=== PATIENT | female | born 1990 | race Caucasian/White ===

== ENCOUNTER → 2016-08-07 | Outpatient (CLI) | payer OTHER ==
[~2016-08-07] MED LIST: PRENTAB26 PO; PRT/20 PO
[2016-08-07 16:32] LABS: HEMATOCRIT 32.4 % (37-47)
== END | disposition home or self-care (01) ==
LOC: C.LAB1850 15:34
PROVIDERS: ATTEND Obstetrics & Gynecology
DX: O24.410 Gestational diabetes mellitus in pregnancy, diet controlled (principal)

== ENCOUNTER → 2016-08-07 | Outpatient (CLI) | payer OTHER ==
[2016-08-07 18:53] LABS: URINE APPEARANCE CLEAR (CLEAR); URINE BILIRUBIN NEG (NEG); URINE COLOR YELLOW; URINE NITRITE NEG (NEG); URINE PH 6.5 (4.5-7.5); UROBILINOGEN NEG (NEG)
[2016-08-07 18:58] LABS: MANUAL MICROSCOPIC REQUIRED? NO; REVIEW REQ? NO
== END | disposition home or self-care (01) ==
LOC: C.LABSPEC 17:51
PROVIDERS: ATTEND Obstetrics & Gynecology
DX: O24.410 Gestational diabetes mellitus in pregnancy, diet controlled (principal)

== ENCOUNTER 2016-08-22 17:46 | Outpatient (CLI) | payer OTHER ==
[~2016-08-22] VITALS: Ht 170.2 cm; Wt 80.7 kg
[2016-08-22 18:22] VITALS: Ht 170.2 cm; Wt 80.7 kg
[2016-08-22] MEDS ORDERED: PRENTAB26 PO (18:28)
[2016-08-22] MEDS ORDERED: PRT/20 PO (18:28)
== END 2016-08-22 18:50 | disposition home or self-care (01) ==
LOC: C.LD 17:46 → C.OPB 17:46
PROVIDERS: ATTEND Obstetrics & Gynecology
DX: O62.9 Abnormality of forces of labor, unspecified (principal); Z3A.31 31 weeks gestation of pregnancy

== ENCOUNTER 2016-09-02 13:33 | Emergency (ER) | payer OTHER ==
[~2016-09-02] VITALS: Ht 170.2 cm; Wt 80.0 kg
[2016-09-02 13:38] VITALS: TEMP 36.8; Ht 170.2 cm; Wt 80.0 kg
[2016-09-02 14:01] VITALS: O2SAT 96
[2016-09-02 14:21] LABS: POINT OF CARE PRO-BNP < 15 pg/ml (0-450)
--- NOTE | 2016-09-02 14:37 | EMERGENCY ROOM VISIT NOTE ---
History Report prepared by Zackibsavi: Brianna Achraya Under the Supervision of: Dr. Mack English D.O. First contact with patient: 13:41 Chief Complaint: SHORTNESS OF BREATH Stated Complaint: SOB,TINGLING IN HANDS AND FEET,HEADACHE Nursing Triage Summary: PT HERE WITH FEELING OF SOB SINCE LAST PM INTERMITTENTLY. PT STATES FEELS NEED TO TAKE A DEEP BREATH. PT STATES HANDS FEEL TERESA. History of Present Illness The patient is a 33 week 25 year old female who presents to the Emergency Room with complaints of intermittent shortness of breath over the past 2 months. The patient states that her shortness of breath used to go away with changing positions but now does not go away when she changes positions. It occurs when she is both exerting herself and at rest. She notes that it seems to have worsened since yesterday. She also complains of nausea and tingling in her fingers and toes. Last night, she had a headache. Currently, she feels slightly short of breath. She does not have any leg swelling at present. She has a history of anxiety years ago. Source of History: patient Onset: 2 months ago Position: other (global) Timing: intermittent, worsening Associated Symptoms: + headache, + nausea Note: Other symptoms: fingers and toes are tingling Review of Systems See HPI for pertinent positives & negatives. A total of 10 systems reviewed and were otherwise negative. Past Medical & Surgical Medical Problems: (1) Irregular contractions Family History No pertinent family history stated. Social History Smoking Status: Never Smoker Marital Status: Housing Status: lives with significant other Current/Historical Medications Scheduled Multivit/Min/Iron/Fol Ac/Pren ( Vitamin), 1 TAB PO 2XWK Scheduled PRN Pantoprazole (Protonix), 20 MG PO DAILY PRN for Heartburn Allergies Coded Allergies: No Known Allergies (Unverified , 09/02/16) Verified with the patient Physical Exam Vital Signs Date Time Temp Pulse Resp B/P Pulse Ox O2 Delivery O2 Flow Rate FiO2 09/02/16 14:38 88 16 100/59 96 Room Air 09/02/16 14:01 96 Room Air 09/02/16 13:47 97 Room Air 09/02/16 13:38 36.8 98 16 110/66 97 Room Air Physical Exam CONSTITUTIONAL/VITAL SIGNS: Reviewed / noted above. GENERAL: Non-toxic in appearance. INTEGUMENTARY: Warm, dry, and Gratis. HEAD: Normocephalic. EYES: without scleral icterus or trauma. ENT/OROPHARYNX: clear and moist. LYMPHADENOPATHY/NECK: Is supple without lymphadenopathy or meningismus. RESPIRATORY: Lungs clear and equal. CARDIOVASCULAR: Regular rate and rhythm. GI/ABDOMEN: Gravid abdomen, nontender. No organomegaly or pulsatile mass. No rebound or guarding. Normal bowel sounds. EXTREMITIES: Warm and well perfused. BACK: No CVA tenderness. NEUROLOGICAL: Intact without focal deficits. PSYCHIATRIC: normal affect. MUSCULOSKELETAL: Normally developed with good muscle tone. Medical Decision & Procedures Laboratory Results Test 09/02/16 14:00 Bedside Troponin I 0.000 ng/ml (0-0.045) [id number]-Type Natriuretic Peptide < 15 pg/ml (0-450) Laboratory results as stated above per my review. ECG Indication: SOB/dyspnea Rate (beats per minute): 99 Rhythm: normal sinus Findings: no ectopy, other (no acute injury) ED Course 1343: The patient was evaluated in room C8. A complete history and physical examination was performed. 1430: On reevaluation, the patient is resting comfortably. I discussed the results and findings with the patient. She verbalized agreement of the treatment plan. The patient was discharged home. Medical Decision the differential was considered includes acute myocardial infarction, acute coronary syndrome, myocarditis, pericarditis, pericardial effusions /tamponad, esophageal perforation, pulmonary embolism, pneumonia, pneumothorax, cardiomyopathy, congestive heart, anemia , COPD/asthma exacerbation. This is a 25-year-old female who presents to the ED with a chief complaint of some shortness of breath as well as tingling in her hands and feet. Her symptoms occurred last night while she was sleeping. She woke with the symptoms. They subsequently resolved. She is now feeling better. She has some mild shortness of breath related to her 33 week gravid abdomen but she denies having any chest pains. She was concerned about her symptoms that she had last night. Again these have resolved. Her vital signs are stable. Her physical exam was normal. She is comfortable. She is not having any respiratory distress. Her lungs are clear. Abdomen is gravid. She denies any vaginal discharge or bleeding. She denies any back pains. She denies any swelling of her lower extremities. Exam of her lower extremities did not reveal any edema or tenderness to the calf muscles. A twelve-lead EKG reveals a sinus rhythm. Troponin was negative. BNP is normal. Hemoglobin was 11.1. The patient was reassessed per she is resting comfortably. She has normal vital signs. Saturations are normal. She is felt to be stable for discharge. The patient is not felt to have a DVT based on history and exam. I do not suspect PE based on history as well as the fact that her symptoms were present and then resolved on their own. She is in no distress and has no pains or shortness of breath at this time. Impression Primary Impression: Dyspnea Additional Impression: Third trimester Scribe Attestation The scribe's documentation has been prepared under my direction and personally reviewed by me in its entirety. I confirm that the note above accurately reflects all work, treatment, procedures, and medical decision making performed by me. Departure Information Dispostion Home / Self-Care Referrals No Doctor, Assigned (PCP) Patient Instructions My [facility] Additional Instructions Follow-up with your doctor for further care and evaluation in 1-2 days if symptoms persist. Return to the emergency department for worsening or new symptoms or any concerns. You have been examined and treated today on an emergency basis only. This is not a substitute for, or an effort to provide, complete comprehensive medical care. It is impossible to recognize and treat all injuries or illnesses in a single emergency department visit. It is therefore important that you follow up closely with your doctor. Call as soon as possible for an appointment. Problem Qualifiers
[2016-09-02 14:38] VITALS: BP 100/59; PULSE 88; O2SAT 96
[2016-09-10 09:29] LABS: ISTAT CREATININE 0.7 mg/dl (0.6-1.3); ISTAT HEMOGLOBIN 11.2 g/dl (12.0-16.0); ISTAT IONIZED CALCIUM 1.17 mmol/l (1.12-1.32)
== END 2016-09-02 14:43 | disposition home or self-care (01) ==
LOC: C.EDB 13:34 → C.EDC 14:43
DX: O26.893 Other specified pregnancy related conditions, third trimester (principal); R06.00 Dyspnea, unspecified; Z3A.33 33 weeks gestation of pregnancy

== ENCOUNTER → 2016-09-21 | Outpatient (CLI) | payer OTHER | END | disposition home or self-care (01) | LOC: C.LABSPEC 17:41 | PROVIDERS: ATTEND Obstetrics & Gynecology | DX: O24.410 Gestational diabetes mellitus in pregnancy, diet controlled (principal); Z3A.00 Weeks of gestation of pregnancy not specified ==

== ENCOUNTER 2016-10-06 17:27 | Outpatient (CLI) | payer OTHER | END 2016-10-06 19:25 | disposition home or self-care (01) | LOC: C.LD 17:27 → C.OPB 17:27 | PROVIDERS: ATTEND Obstetrics & Gynecology | DX: O62.9 Abnormality of forces of labor, unspecified (principal); Z3A.37 37 weeks gestation of pregnancy ==

== ENCOUNTER 2016-10-13 18:42 | Outpatient (CLI) | payer OTHER ==
[~2016-10-13] VITALS: Ht 170.2 cm; Wt 83.0 kg
[2016-10-13] MEDS ORDERED: OXYCODONE/ACETAMINOPHEN 5-325 TAB PO ONE (19:00)
[2016-10-13] MEDS ORDERED: OXYCODONE/ACETAMINOPHEN 5-325 TAB ONE (19:03)
[2016-10-13 19:50] VITALS: Ht 170.2 cm; Wt 83.0 kg
== END 2016-10-14 00:20 | disposition home or self-care (01) ==
LOC: C.OPB 18:42 → C.LD 18:43 → C.OPB 10-14 00:20
PROVIDERS: ATTEND Obstetrics & Gynecology
DX: O62.9 Abnormality of forces of labor, unspecified (principal); O99.89 Other specified diseases and conditions complicating pregnancy, childbirth and the puerperium; M54.9 Dorsalgia, unspecified; Z3A.39 39 weeks gestation of pregnancy

== ENCOUNTER 2016-10-15 12:29 | Outpatient (CLI) | payer OTHER ==
[~2016-10-15] VITALS: Ht 170.2 cm; Wt 82.8 kg
[2016-10-15 13:26] VITALS: Ht 170.2 cm; Wt 82.8 kg
== END 2016-10-15 15:45 | disposition home or self-care (01) ==
LOC: C.OPB 12:29 → C.LD 12:30 → C.OPB 15:45
PROVIDERS: ATTEND Obstetrics & Gynecology
DX: O62.9 Abnormality of forces of labor, unspecified (principal); Z3A.39 39 weeks gestation of pregnancy; Z22.330 Carrier of Group B streptococcus

== ENCOUNTER 2016-10-15 22:38 | Outpatient (CLI) | payer OTHER ==
[~2016-10-15] VITALS: Ht 170.2 cm; Wt 81.8 kg
[2016-10-15 23:40] VITALS: Ht 170.2 cm; Wt 81.8 kg
--- NOTE | 2016-10-23 10:38 | EDITING REQUIRED CODING QUERY ---
DIAGNOSIS NEEDED To promote full compliance with coding requirements relating to patient care, physician participation is requested in all cases of burner operator uncertainty. Please assist us with the question(s) below: Coding Question: The patient received care in labor and delivery on 10/15/16 as noted within the record. Please document the diagnosis that is being addressed by the medication/treatment. Provider Response: DIAGNOSIS: Term , false labor Thank you for your assistance, Christine Rose - Associate Vice President
== END 2016-10-16 01:45 | disposition home or self-care (01) ==
LOC: C.OPB 22:38 → C.LD 22:38 → C.OPB 10-16 01:45
PROVIDERS: ATTEND Obstetrics & Gynecology
DX: Z34.83 Encounter for supervision of other normal pregnancy, third trimester (principal); Z3A.39 39 weeks gestation of pregnancy

== ENCOUNTER 2016-10-16 13:03 | Outpatient (CLI) | payer OTHER ==
[~2016-10-16] VITALS: Ht 170.2 cm; Wt 82.0 kg
[2016-10-16 13:22] VITALS: Ht 170.2 cm; Wt 82.0 kg
[2016-10-16] MEDS ORDERED: LACTATED RINGER'S 1000ML 1,000 ML IV SCH (13:38)
[2016-10-16] MEDS ORDERED: LACTATED RINGER'S 1000ML 500 ML IV ONE (13:38)
[2016-10-16] MEDS ORDERED: ONDANSETRON INJ 2 MG/ML 2 ML VIAL IV PRN (13:45)
[2016-10-16] MEDS ORDERED: DiphenhydrAMINE INJ 25 MG in SYRINGE 0 ML IV SCH (13:45)
[2016-10-16] MEDS ORDERED: MEPERIDINE HCL 50 MG/ML CARP IV PRN (13:45)
[2016-10-16] MEDS ORDERED: DiphenhydrAMINE HCL 50 MG/ML VIAL IV ONE (13:45)
== END 2016-10-16 16:20 | disposition home or self-care (01) ==
LOC: C.LD 13:03 → C.OPB 13:03
PROVIDERS: ATTEND Obstetrics & Gynecology
DX: O62.9 Abnormality of forces of labor, unspecified (principal); Z3A.39 39 weeks gestation of pregnancy

== ENCOUNTER 2016-10-18 04:14 | Inpatient (IN) | payer OTHER ==
[~2016-10-18] VITALS: Ht 170.2 cm; Wt 81.8 kg
[2016-10-18] MEDS ORDERED: LACTATED RINGER'S 1000ML 1,000 ML IV PRN (07:00)
[2016-10-18 07:12] VITALS: Ht 170.2 cm; Wt 81.8 kg
[2016-10-18] MEDS ORDERED: EpHEDrine SULFATE INJ 50 MG/ML AMP ONE (07:16)
[2016-10-18] MEDS ORDERED: BUPIVACAINE 0.25% 30 ML VIAL ONE (07:16)
[2016-10-18] MEDS ORDERED: FENTANYL 2MCG/ML ROPIV 1.25MG/ML 100ML BAG EPI ONE (07:16)
[2016-10-18] MEDS ORDERED: FENTANYL CITRATE INJ 50 MCG/1 ML 2 ML VIAL ONE (07:17)
[2016-10-18 07:30] LABS: HEMATOCRIT 32.1 % (37-47); MEAN CELL VOLUME 89.4 fL (80-100); MEAN PLATELET VOLUME 10.9 fL (7.4-10.4); PLATELET COUNT 169 K/uL (130-400); RED BLOOD COUNT 3.59 M/uL (4.2-5.4); WHITE BLOOD COUNT 10.78 K/uL (4.8-10.8)
[2016-10-18] MEDS ORDERED: PENICILLIN G POTASSIUM IV 6 MU in DEXTROSE 5% 250ML 250 ML IV SCH (07:30)
[2016-10-18] MEDS: LACTATED RINGER'S 1000ML 1,000 ML IV SCH ×2 (07:30→11:02)
[2016-10-18 07:38] LABS: MEAN CORPUSCULAR HGB CONC 32.4 g/dl (32-36)
[2016-10-18] MEDS ORDERED: NALOXONE HCL INJ 1 MG in SODIUM CHLORIDE 0.9% 1000ML 1,000 ML IV PRN ×4 (08:01)
[2016-10-18] MEDS ORDERED: LACTATED RINGER'S 1000ML 500 ML IV PRN ×2 (08:01→12:10)
[2016-10-18] MEDS ORDERED: NALOXONE HCL INJ 0.4 MG/1 ML VIAL/CARP IV PRN (08:15)
[2016-10-18] MEDS ORDERED: DiphenhydrAMINE HCL 50 MG/ML VIAL IV PRN (08:15)
[2016-10-18] MEDS ORDERED: METOCLOPRAMIDE HCL INJ 20 MG in SODIUM CHLORIDE 0.9% 50ML 50 ML IV PRN (08:15)
[2016-10-18] MEDS ORDERED: NALBUPHINE HCL INJ 10 MG/ML AMP IV PRN (08:15)
[2016-10-18] MEDS ORDERED: PROMETHAZINE HCL INJ 25 MG in SODIUM CHLORIDE 0.9% 50ML 50 ML IV PRN (08:15)
[2016-10-18] MEDS ORDERED: FENTANYL 2MCG/ML ROPIV 1.25MG/ML 100ML BAG EPI PRN (08:15)
[2016-10-18] MEDS ORDERED: EpHEDrine SULFATE INJ 50 MG/ML AMP IV PRN (08:15)
[2016-10-18] MEDS ORDERED: ONDANSETRON INJ 2 MG/ML 2 ML VIAL IV PRN (08:15)
[2016-10-18] MEDS: PENICILLIN G POTASSIUM IV 3 MU in DEXTROSE 5% 100ML 100 ML IV PRN ×2 (11:12→15:14)
[2016-10-18] MEDS ORDERED: OXYTOCIN 30 UNITS/500ML NSS IV PRN ×2 (12:15→18:15)
[2016-10-18] MEDS ORDERED: METHYLERGONOVINE MALEATE 0.2 MG/ML AMP ONE (17:54)
[2016-10-18] MEDS ORDERED: ACETAMINOPHEN/CODEINE 300/30MG TAB PO PRN ×2 (18:15)
[2016-10-18] MEDS ORDERED: OXYCODONE/ACETAMINOPHEN 5-325 TAB PO PRN (18:15)
[2016-10-18] MEDS ORDERED: LANOLIN OINT EXT PRN ×2 (18:15)
[2016-10-18] MEDS ORDERED: BENZOCAINE 20% AER SPR 82.5 GM CAN EXT PRN (18:15)
[2016-10-18] MEDS ORDERED: DIPHTHERIA/TETANUS/PERTUSSIS 0.5 ML SYR/VIAL IM. ONE (18:15)
[2016-10-18] MEDS ORDERED: SUPERCREAM 0.870 % 15GM JAR EXT PRN (18:15)
[2016-10-18] MEDS ORDERED: HYDROCORTISONE ACETATE 25 MG SUPP PR PRN (18:15)
[2016-10-18] MEDS: IBUPROFEN 600 MG TAB PO PRN (19:14)
--- NOTE | 2016-10-18 19:55 | Anesthesia Procedure Note ---
Anesthesia Epidural Removal Nt Date & Time Oct 18, 2016 at 19:54 Vital Signs Pain Intensity: 2.0 Notes Mental Status: alert / awake / arousable, participated in evaluation Nausea / Vomiting: adequately controlled Pain: adequately controlled Airway Patency, RR, SpO2: stable & adequate BP & HR: stable & adequate Hydration State: stable & adequate Neuraxial Anesthesia: was administered Anesthetic Complications: no major complications apparent, pt satisfied with anesthetic care Epidural: removed without complications, with tip intact
[2016-10-18] MEDS: ACETAMINOPHEN 325 MG TAB PO PRN (20:18)
[2016-10-18] MEDS: DOCUSATE SODIUM 100 MG CAP PO SCH (20:37)
[2016-10-18 21:00] VITALS: BP 115/72; PULSE 90; TEMP 37.3
[2016-10-19 00:20] VITALS: BP 104/68; PULSE 85; TEMP 36.6
[2016-10-19] MEDS: IBUPROFEN 600 MG TAB PO PRN ×4 (00:34→20:33)
[2016-10-19] MEDS: DOCUSATE SODIUM 100 MG CAP PO SCH ×3 (01:35→20:31)
[2016-10-19 04:00] VITALS: BP 124/75; PULSE 79; TEMP 36.7
[2016-10-19] MEDS: ACETAMINOPHEN 325 MG TAB PO PRN ×3 (04:16→22:48)
--- NOTE | 2016-10-19 06:06 | Progress Note ---
Subjective Oct 19, 2016. Subjective conversation w/ patient, physical exam, lab review Voiding: no voiding problems Passing Gas: Yes Diet Tolerance: Regular Diet Lochia: Small Feeding Type: Breast Feeding Pain: feels really sore all over Objective Vital Signs Date Time Temp Pulse Resp B/P Pulse Ox O2 Delivery O2 Flow Rate FiO2 10/19/16 04:00 36.7 79 16 124/75 10/19/16 00:20 36.6 85 16 104/68 10/19/16 00:20 Room Air 10/18/16 21:00 37.3 90 18 115/72 10/18/16 21:00 Room Air Physical Exam General Appearance: WELL-APPEARING, WD/WN, NO APPARENT DISTRESS Respiratory/Chest: lungs clear, normal breath sounds Cardiovascular: regular rate, rhythm Abdomen: normal bowel sounds, non tender Fundus: Firm, Non-Tender, Relation to Umbilicus (at u) Extremities: non-tender, normal inspection, no pedal edema Laboratory Results Last 24 Hours Test 10/18/16 07:16 10/18/16 12:22 10/19/16 04:44 White Blood Count 10.78 K/uL Red Blood Count 3.59 M/uL Hemoglobin 10.4 g/dL Hematocrit 32.1 % Mean Corpuscular Volume 89.4 fL Mean Corpuscular Hemoglobin 29.0 pg Mean Corpuscular Hemoglobin Concent 32.4 g/dl RDW Standard Deviation 52.3 fL RDW Coefficient of Variation 16.1 % Platelet Count 169 K/uL Mean Platelet Volume 10.9 fL Bedside Glucose 82 mg/dl Assessment and Plan Problem List Medical Problems: (1) Dyspnea Status: Acute (2) Third trimester Status: Acute Post- Day#: 1 Continue Routine Care: Doing well Routine care.
--- NOTE | 2016-10-19 07:09 | OPERATIVE REPORT ---
DATE OF OPERATION: 10/18/2016 PREOPERATIVE DIAGOSES: 1. Intrauterine at 39 plus weeks. 2. Diet-controlled gestational diabetes. DISCHARGE DIAGNOSES: Same. PROCEDURES: 1. Epidural anesthesia. 2. Amniotomy. 3. Normal spontaneous vaginal delivery. SURGEON: Dr. Whatley. ANESTHESIA: Epidural. ESTIMATED BLOOD LOSS: 400 mL. PROCEDURE IN DETAIL: The patient presented to labor and delivery and was finally found to be changed at 6 cm. She was admitted. She underwent an epidural anesthesia. She had some leaking of fluid after the epidural anesthesia and we thought maybe her water broke but after checking her, when she was 6-7, I did feel a bag and so the forewaters were broken for clear fluid. We also started Pitocin augmentation, never reached greater than 5 milliunits. The patient became complete-complete, +2 station and pushed over 2 contractions to deliver a viable female infant in CRISTINA presentation. The nose and mouth were bulb suctioned. There was no nuchal cord. The anterior shoulder was delivered easily but a pop was heard during the delivery. The body was then delivered easily. The baby was vigorous and crying. Nose and mouth were bulb suctioned. The was placed on the maternal abdomen for drying and attention. The cord was clamped and cut. Cord blood and segment were obtained. Placenta was delivered spontaneously intact with a 3-vessel cord. Cervix, sulci, and rectum were examined and found to be intact. Perineum was intact as well. Hemostasis was obtained with dilute Pitocin and fundal massage. Apgars 9 and 10. Mother and baby doing well at the end of the delivery. I attest to the content of the Intraoperative Record and any orders documented therein. Any exceptio ns are noted below.
[2016-10-19 07:36] LABS: HEMATOCRIT 28.6 % (37-47)
[2016-10-19 08:00] VITALS: BP 106/68; PULSE 85; TEMP 36.7
[2016-10-19] MEDS ORDERED: LORATADINE 10 MG TAB PO SCH (08:00)
[2016-10-19] MEDS: PRENATAL VITAMIN TAB PO SCH (08:07)
[2016-10-19 11:16] VITALS: BP 111/75; PULSE 88; TEMP 36.7; O2SAT 97
[2016-10-19 15:14] VITALS: BP 107/69; PULSE 84; TEMP 36.6
[2016-10-19 23:15] VITALS: BP 104/71; PULSE 80; TEMP 36.5; O2SAT 97
[2016-10-20] MEDS: ACETAMINOPHEN 325 MG TAB PO PRN ×3 (04:49→17:40)
[2016-10-20] MEDS: IBUPROFEN 600 MG TAB PO PRN ×3 (04:49→15:57)
--- NOTE | 2016-10-20 06:50 | Progress Note ---
Subjective Oct 20, 2016. Subjective conversation w/ patient, physical exam, lab review Ambulation: ambulating normally Voiding: no voiding problems Passing Gas: Yes Diet Tolerance: Regular Diet Lochia: Small Feeding Type: Breast Feeding Pain: denies any pain now, improves with med Comment: Patient was seen at the bedside. No acute event overnight. Review of Systems Constitutional: No fever Respiratory: No shortness of breath Cardiac: No chest pain Breast: No breast lump Abdomen: No nausea, No pain, No vomiting Female : No dysuria, No urinary frequency Denies headache Objective Vital Signs Date Time Temp Pulse Resp B/P Pulse Ox O2 Delivery O2 Flow Rate FiO2 10/19/16 23:15 97 Room Air 10/19/16 23:15 36.5 80 18 104/71 97 Room Air 10/19/16 15:50 Room Air 10/19/16 15:14 36.6 84 18 107/69 Room Air 10/19/16 11:16 36.7 88 20 111/75 97 Room Air 10/19/16 08:00 36.7 85 20 106/68 Room Air 10/19/16 08:00 Room Air Physical Exam General Appearance: WELL-APPEARING, WD/WN, NO APPARENT DISTRESS Respiratory/Chest: chest non-tender, lungs clear, normal breath sounds, no respiratory distress Cardiovascular: regular rate, rhythm Abdomen: normal bowel sounds, non tender, soft Fundus: Firm, Relation to Umbilicus (2cm below) Extremities: non-tender, no pedal edema, no calf tenderness Laboratory Results Last 24 Hours Test 10/19/16 06:59 Hemoglobin 8.8 g/dL Hematocrit 28.6 % Medications Current Inpatient Medications Medications (Trade) Dose Ordered Sig/Walter Route Start Time Stop Time Status Last Admin Dose Admin Oxytocin (Pitocin IV) 30 units UD PRN IV 10/18/16 18:15 11/17/16 18:14 Benzocaine (Dermoplast Aero Spr) 1 appln PRN PRN EXT 10/18/16 18:15 11/17/16 18:14 Cocaine HCl (Supercream 0.870% Cr) BID PRN EXT 10/18/16 18:15 11/01/16 18:14 Hydrocortisone Acetate (Anusol Hc Supp) 25 mg BID PRN KS 10/18/16 18:15 11/17/16 18:14 Lanolin (Lanolin Oint) PRN PRN EXT 10/18/16 18:15 11/17/16 18:14 Prenat Multivit/ [place]/Iron/Folic Ac ( Vitamin Tab) 1 tab DAILY PO 10/19/16 08:00 11/18/16 07:59 10/19/16 08:07 1 TAB Ibuprofen (Motrin Tab) 600 mg Q4H PRN PO 10/18/16 18:15 11/17/16 18:14 10/20/16 04:49 600 MG Acetaminophen (Tylenol Tab) 650 mg Q6H PRN PO 10/18/16 18:15 11/17/16 18:14 10/20/16 04:49 650 MG Acetaminophen/ Codeine Phosphate (Tylenol w/ Codeine #3 Tab) 1 tab Q4H PRN PO 10/18/16 18:15 11/17/16 18:14 Acetaminophen/ Codeine Phosphate (Tylenol w/ Codeine #3 Tab) 2 tab Q4H PRN PO 10/18/16 18:15 11/17/16 18:14 Docusate Sodium (coLACE CAP) 100 mg BID PO 10/18/16 20:00 11/17/16 19:59 10/19/16 20:31 100 MG Assessment and Plan Problem List Medical Problems: (1) Dyspnea Status: Acute (2) Third trimester Status: Acute Post- Day#: 2 Continue Routine Care: A/P: This is a 25 y/o female, , s/p normal vaginal delivery. She is ambulating and clinically stable to discharge. - Vital signs are reviewed and WNL (Tmax 36.7 ) - Last Hgb 8.8 - Blood type O-, GBS neg, Rubella Immune - No signs of depression. - Routine care - Discussed resting, feeding, pain control, mastitis, control, follow up in 6 weeks and reasons to call sooner, if necessary. - Continue with pain medication as needed, and continue vitamins. - Encourage breast feeding and educate about breast feeding - Patient understands and keen for home. - Plan to discharge home Resident Physician Supervision Note: I interviewed and examined the patient. Discussed with Dr. Short and agree with findings and plan as documented in the note. Any exceptions or clarifications are listed here: [None] Documented By: Amilcar Mays
--- NOTE | 2016-10-20 07:47 | Discharge Instructions ---
Discharge Instructions Date of Service Oct 19, 2016. Admission Reason for Admission: LABOR Discharge Discharge Diagnosis / Problem: s/p vaginal delivery Discharge Goals Goal(s): Routine recovery after delivery Medications Continue Dispensed Medications: supercream, dermaplast, tucks, lansinoh Activity Recommendations Activity Limitations: as noted below . Instructions / Follow-Up Instructions / Follow-Up ACTIVITY RECOMMENDATIONS: * Gradual return to full activity over the next 2-3 weeks. * No lifting - nothing heavier than baby over the next 2-3 weeks. * Do not engage in vigorous exercise, sexual activity or sports until cleared by your physician. * Do not drive or operate any motorized equipment until cleared by your physician. * You may shower/bathe daily. MEDICATIONS: For discomfort or pain, you may use Acetaminophen (Tylenol), Ibuprofen (Advil), or Naproxen (Aleve) following the package directions. For constipation you may use Colace following the package directions. BREAST CARE: If you are not breast feeding: * Wear a supportive bra 24 hours a day for one to two weeks. * Avoid stimulating your breasts and nipples as much as possible during the first few weeks after delivery. * When taking a shower, have the warm water hit your back, not breasts. * When your breasts feel full, apply ice packs. Usually three to four times a day helps ease the discomfort. * Take a mild pain medication (Tylenol / Motrin) when you are uncomfortable. If breast feeding: * Use breast milk to lubricate nipples. Lansinoh cream may be used for sore nipples. You do not need to remove cream prior to breast feeding. If using a different brand of cream, check the label for directions regarding removal of cream prior to nursing. * Wear a supportive bra. * If having problems with breasts or breast feeding, call a education consultant or your health care provider. EPISIOTOMY CARE: After delivery, if you have an episiotomy (stitches), the following steps will ease discomfort and aid healing. * For the first 24 hours after delivery, place ice packs next to your episiotomy to help reduce swelling. * After the first 24 hour-period, sitz baths, either portable or in the tub, are suggested. A shower with a shower arm sprayed over the episiotomy may be comforting. * Sirisha care should be done after each voiding and bowel movement. Squirt warm water from a plastic bottle over the perineum (region of the body between the anus and urinary opening) and pat dry. * Use Dermoplast to ease discomfort. Shake container. Ehrhardt directly over the episiotomy. Place a Tucks on a clean sanitary pad next to your episiotomy. SPECIAL CARE INSTRUCTIONS: When you are discharged from the hospital, it is important for you to follow the instructions listed below: * During the first week at home, you should be able to care for yourself and your baby. In addition, the usual light household activities are encouraged. * Limit your activities to the way you feel. Do not try to clean the house or move furniture. Be sensible. * If you actively engage in sports and have done so up until the time of your delivery, you may resume these activities as soon as you feel able. This may take up to one month or even longer. Use good judgment. * Continue to take your vitamins for at least six weeks after the of your baby. * Your diet need not be limited unless you were on a special diet before your delivery. Breast-feeding mothers need around 2500 calories per day and at least 64-80 ounces of fluid per day (8 to 10 glasses). * You should eat foods from the four major food groups. Crash diets or fad diets are to be avoided. Eating lean meats, fresh fruits and vegetables, low-fat dairy products, high fiber foods and a regular exercise program, will help you get back to your pre- weight without putting your health at risk. * Constipation is sometimes a problem after delivery. Take a mild laxative as needed. If breast feeding, Milk of Magnesia is acceptable to use. You may use a suppository or Fleets enema if no episiotomy. * A daily shower or tub bath is suggested. Be sure to thoroughly and gently dry the perineum. * A bloody vaginal discharge will usually continue until around four weeks post . A small amount of bleeding may continue for as long as six weeks. Vaginal discharge changes from the bright red bleeding after delivery to pink then brownish and finally yellowish-pink before becoming white and disappearing. * Bleeding may increase with activity. Your first period may come in 4-8 weeks. If you are breast feeding, your period may be delayed even longer. * [place] (sex) can begin whenever both you and your partner feel comfortable and do not have any form of genital infection. It is recommended that you wait at least six weeks for internal and external healing to occur. If you have questions, please talk to your health care practitioner. A condom should be used to prevent infection and . * Foreplay, gentle intercourse and lubrication is very important the first several times to prevent pain. A water-based lubricant such as K-Y jelly or Astroglide may be used. * If you have RH negative blood and your baby is RH positive, you will receive RHOGAM by injection prior to discharge. The nurse will give you a card to keep with you that has the date and place that you received RHOGAM after delivery. * During your care, you had a Rubella screen done to check for the presence of rubella antibodies in your blood. If your test was negative, you will receive a Rubella vaccine prior to discharge. This vaccine may cause a fever, soreness at the injection site and flu-like symptoms. If these symptoms persist, notify your health care practitioner. is not advised for one month after a Rubella vaccine. * Verbalizes understanding of car seat law as reviewed with patient nursing. * Car Seat hand-out given and reviewed with patient by nursing. * Shaken baby information reviewed with patient by nursing. Call you doctor if: * Heavy bleeding (saturating several pads an hour) or passing clots the size of your fist. * A fever >101 degrees F (38.3 degrees C) on two occasions four hours apart and /or chills. * Unusual pain in the pelvic or vaginal areas. * "Baby Blues" lasting longer than two weeks. If you have any questions or concerns, call your health care practitioner at . FOLLOW UP VISIT: * Please call the office at to schedule a 6 week examination. It is important you keep this appointment. It is important for you to make arrangements for either yearly or twice yearly check-ups thereafter. Current Hospital Diet Patient's current hospital diet: Regular OB Diet Discharge Diet Recommended Diet: Regular Diet Pending Studies Studies pending at discharge: no Medical Emergencies . Who to Call and When: Medical Emergencies: If at any time you feel your situation is an emergency, please call 911 immediately. . Non-Emergent Contact Non-Emergency issues call your: Entry Tech . . "Provider Documentation" section prepared by Boogie Short. . VTE Core Measure Inpt VTE Proph given/why not?: Treatment not indicated
[2016-10-20 08:00] VITALS: BP 111/75; PULSE 78; TEMP 36.6; O2SAT 97
[2016-10-20] MEDS: DOCUSATE SODIUM 100 MG CAP PO SCH (08:55)
[2016-10-20] MEDS: PRENATAL VITAMIN TAB PO SCH (08:55)
[2016-10-20 16:00] VITALS: BP 116/77; PULSE 77; TEMP 36.7; O2SAT 97
[2016-10-20 18:00] VITALS: BP_DIAS 77; PULSE 77; TEMP 36.7
== END 2016-10-20 18:00 | disposition home or self-care (01) | DRG 775 ==
LOC: C.LD 04:14 → C.OPB 04:14 → C.LD 07:01 → C.OPB 07:01 → C.MS4N 20:49
PROVIDERS: ADMIT Obstetrics & Gynecology; ATTEND Obstetrics & Gynecology
PROC: 10E0XZZ Delivery of Products of Conception, External Approach (ICD-10-PCS; principal; 2016-10-18)
DX: O24.420 Gestational diabetes mellitus in childbirth, diet controlled (principal); O99.824 Streptococcus B carrier state complicating childbirth; Z3A.39 39 weeks gestation of pregnancy; Z37.0 Single live birth

== ENCOUNTER → 2017-08-13 | Outpatient (CLI) | payer OTHER | END | disposition home or self-care (01) | LOC: C.LAB1850 14:08 | PROVIDERS: ATTEND Obstetrics & Gynecology | DX: N91.2 Amenorrhea, unspecified (principal) ==

== ENCOUNTER → 2017-08-23 | Outpatient (CLI) | payer OTHER | END | disposition home or self-care (01) | LOC: C.LAB1850 08:47 | PROVIDERS: ATTEND Obstetrics & Gynecology | DX: N91.2 Amenorrhea, unspecified (principal) ==